=== PATIENT | female | born 1995 | race Caucasian/White ===

== ENCOUNTER → 2019-10-01 12:20 | Observation (INO) | END | disposition home or self-care (01) | LOC: 1NENULAB | PROVIDERS: ADMIT Advanced Practice Midwife; ATTEND Advanced Practice Midwife ==

== ENCOUNTER 2019-10-29 05:41 | Inpatient (IN) ==
[2019-10-29] MEDS ORDERED: CeFAZolin Syr 3,000MG/30 ML 3,000 MG/30 ML SYRINGE IVPB ONE (05:43)
[2019-10-29] MEDS ORDERED: Famotidine 20 MG/2 ML VIAL IVP ONE (05:43)
[2019-10-29] MEDS ORDERED: Metoclopramide 10 MG/2 ML VIAL IVP ONE (05:43)
[2019-10-29] MEDS ORDERED: Ringers Solution, Lactated 1,000 ML IVC ONE (05:43)
[2019-10-29 06:21] LABS: Basophils % 0.3 %; Eosinophils # 0.1 K/mcL (0.0-0.6); Eosinophils % 0.8 %; Hematocrit 36.9 % (35.3-44.9); Hemoglobin 13.1 g/dL (11.5-15.4); Immature Granulocytes % 0.8 % (0-4); Lymphocytes # 2.8 K/mcL (0.6-4.6); Lymphocytes % 21.5 %; Mean Corpuscular HGB Conc 35.5 g/dL (31.6-35.5); Mean Corpuscular Hemoglobin 29.8 pg (28.0-33.3); Mean Corpuscular Volume 84.1 fL (83.0-100.0); Mean Platelet Volume 10.1 fL (9.4-12.4); Monocytes % 7.5 %; Neutrophils # 9.1 K/mcL (1.6-8.9); Platelet Count 273 K/mcL (140-400); Red Blood Count 4.39 M/mcL (3.82-4.97); Segmented Neutrophils % 69.1 %; White Blood Count 13.2 K/mcL (4.3-11.1)
[2019-10-29] MEDS ORDERED: Ringers Solution, Lactated 1,000 ML ONE ×2 (07:12→07:18)
[2019-10-29] MEDS ORDERED: *HR* Morphine Sulfate/PF 10 MG/10 ML AMPUL ONE (07:16)
[2019-10-29] MEDS ORDERED: *HR* Midazolam HCl 2 MG/2 ML VIAL ONE (07:16)
[2019-10-29] MEDS ORDERED: EPHEDrine 50 MG/ML VIAL ONE (07:17)
[2019-10-29] MEDS ORDERED: *HR* FentaNYL (PF) 100 MCG/2 ML VIAL ONE ×3 (07:17→08:54)
[2019-10-29] MEDS ORDERED: Ibuprofen 400 MG TABLET PO PRN (07:25)
[2019-10-29] MEDS ORDERED: Ondansetron 4 MG/2 ML VIAL IVP PRN ×2 (07:25→12:02)
[2019-10-29] MEDS ORDERED: *HR* OxyCODONE/APAP 5/325 TABLET PO PRN (07:25)
[2019-10-29] MEDS ORDERED: Acetaminophen IV 1,000 MG/100 ML INFUS..BTL IVPB ONE (07:25)
[2019-10-29] MEDS ORDERED: Ondansetron 4 MG/2 ML VIAL ONE (07:38)
[2019-10-29] MEDS ORDERED: Dexamethasone 4 MG/ML VIAL ONE (07:38)
[2019-10-29] MEDS ORDERED: Ketorolac 30 MG/ML VIAL ONE (07:38)
[2019-10-29] MEDS ORDERED: *HR* Oxytocin 10 UNIT/ML VIAL IM ONE (07:40)
[2019-10-29] MEDS ORDERED: *HR* Phenylephrine 10 MG/ML VIAL ONE (08:52)
[2019-10-29] MEDS ORDERED: Oxytocin 20 units/ LR 1000 mL 20 UNIT/1,000 ML BAG IVC ONE (11:07)
[2019-10-29] MEDS ORDERED: Ringers Solution, Lactated 1,000 ML IVC SCH (12:02)
[2019-10-29] MEDS ORDERED: Rho Immune Globulin 1,500 UNIT SYRINGE IM ONE (12:02)
[2019-10-29] MEDS ORDERED: *HR* OxyCODONE/APAP 10/325 TABLET PO PRN (12:02)
[2019-10-29] MEDS ORDERED: Sennosides 8.6 MG TABLET PO PRN (12:02)
[2019-10-29] MEDS ORDERED: Oxytocin 20 units/ LR 1000 mL 20 UNIT/1,000 ML BAG IVC SCH (12:02)
[2019-10-29] MEDS ORDERED: Metoclopramide 10 MG/2 ML VIAL IVP PRN (12:02)
[2019-10-29] MEDS: Ibuprofen 600 MG TABLET PO PRN (15:57)
[2019-10-29] MEDS: cephALEXin 500 MG CAPSULE PO SCH ×2 (15:58→19:40)
[2019-10-29] MEDS: metroNIDAZOLE 500 MG TABLET PO SCH ×2 (15:58→19:40)
[2019-10-29] MEDS: *HR* OxyCODONE/APAP 5/325 TABLET PO PRN (21:21)
[2019-10-29] MEDS: Simethicone 80 MG TAB.CHEW PO PRN (21:53)
[2019-10-30] MEDS: *HR* OxyCODONE/APAP 5/325 TABLET PO PRN ×2 (05:29→14:02)
[2019-10-30 06:48] LABS: Basophils % 0.2 %; Eosinophils # 0.1 K/mcL (0.0-0.6); Eosinophils % 0.4 %; Hematocrit 38.3 % (35.3-44.9); Hemoglobin 13.1 g/dL (11.5-15.4); Immature Granulocytes % 0.7 % (0-4); Lymphocytes # 2.1 K/mcL (0.6-4.6); Lymphocytes % 13.1 %; Mean Corpuscular HGB Conc 34.2 g/dL (31.6-35.5); Mean Corpuscular Hemoglobin 29.2 pg (28.0-33.3); Mean Corpuscular Volume 85.5 fL (83.0-100.0); Mean Platelet Volume 10.2 fL (9.4-12.4); Monocytes # 1.4 K/mcL (0.0-1.3); Monocytes % 8.2 %; Neutrophils # 12.7 K/mcL (1.6-8.9); Platelet Count 256 K/mcL (140-400); Red Blood Count 4.48 M/mcL (3.82-4.97); Red Cell Distribution Width 13.9 % (11.5-14.5); Segmented Neutrophils % 77.4 %; White Blood Count 16.4 K/mcL (4.3-11.1)
[2019-10-30] MEDS ORDERED: NON-FORMULARY MEDICATION 1 EACH EACH (Pnv No.95/Ferrous Fum/Folic Ac [Prenatal Caplet] 1 T PO SCH (09:00)
[2019-10-30] MEDS: cephALEXin 500 MG CAPSULE PO SCH ×3 (09:14→20:18)
[2019-10-30] MEDS: metroNIDAZOLE 500 MG TABLET PO SCH ×3 (09:15→20:18)
[2019-10-30] MEDS: Prenatal Vit/FA 1 EACH TABLET PO SCH (09:15)
[2019-10-30] MEDS: Simethicone 80 MG TAB.CHEW PO PRN (09:28)
[2019-10-30] MEDS: Ibuprofen 600 MG TABLET PO PRN ×2 (09:28→20:18)
[2019-10-31 07:51] VITALS: BP 99/57
[2019-10-31] MEDS: Ibuprofen 600 MG TABLET PO PRN (08:10)
[2019-10-31] MEDS: Prenatal Vit/FA 1 EACH TABLET PO SCH (08:11)
[2019-10-31] MEDS: cephALEXin 500 MG CAPSULE PO SCH (08:11)
[2019-10-31] MEDS: metroNIDAZOLE 500 MG TABLET PO SCH (08:11)
[2019-10-31] MEDS: *HR* OxyCODONE/APAP 5/325 TABLET PO PRN ×2 (09:06)
== END 2019-10-31 12:07 | disposition home or self-care (01) | DRG 540 ==
LOC: 1NENULAB 05:41 → 1NENUOBS 11:48
PROVIDERS: ADMIT Obstetrics & Gynecology; ATTEND Obstetrics & Gynecology

== ENCOUNTER → 2021-05-19 17:40 | Observation (INO) | END | disposition home or self-care (01) | LOC: 1NENULAB | PROVIDERS: ADMIT Obstetrics & Gynecology; ATTEND Obstetrics & Gynecology ==

== ENCOUNTER 2021-06-05 05:37 | Inpatient (IN) ==
[2021-06-05] MEDS ORDERED: *HR* HYDROmorphone PF 0.5 MG/0.5 ML SYRINGE IVP PRN (06:06)
[2021-06-05] MEDS ORDERED: Promethazine 6.25 MG in Water for inj. (sterile) 20 ML IVPB PRN (06:06)
[2021-06-05] MEDS ORDERED: *HR* Labetalol 20 MG/4 ML SYRINGE IVP PRN (06:06)
[2021-06-05] MEDS ORDERED: *HR* Midazolam HCl 2 MG/2 ML VIAL ONE (06:39)
[2021-06-05] MEDS ORDERED: Ondansetron 4 MG/2 ML VIAL ONE (06:39)
[2021-06-05] MEDS ORDERED: Ketorolac 30 MG/ML VIAL ONE (06:39)
[2021-06-05] MEDS ORDERED: Ringers Solution, Lactated 1,000 ML ONE (06:40)
[2021-06-05] MEDS ORDERED: EPHEDrine 50 MG/ML VIAL ONE (06:40)
[2021-06-05] MEDS ORDERED: *HR* FentaNYL (PF) 100 MCG/2 ML VIAL ONE (06:41)
[2021-06-05] MEDS ORDERED: Famotidine 20 MG/2 ML VIAL IVP PRN (06:42)
[2021-06-05] MEDS ORDERED: *HR* Morphine Sulfate/PF 10 MG/10 ML AMPUL ONE (06:42)
[2021-06-05] MEDS ORDERED: Naloxone 0.4 MG/ML INJ IVP PRN (06:42)
[2021-06-05] MEDS ORDERED: Metoclopramide 10 MG/2 ML VIAL IVP PRN ×2 (06:42→12:31)
[2021-06-05] MEDS ORDERED: Ringers Solution, Lactated 1,000 ML IVC SCH ×2 (06:45→12:31)
[2021-06-05 07:10] LABS: Basophils % 0.2 %; Eosinophils # 0.1 K/mcL (0.0-0.6); Hematocrit 35.3 % (35.3-44.9); Hemoglobin 11.9 g/dL (11.5-15.4); Immature Granulocytes % 1.1 % (0-4); Lymphocytes % 18.7 %; Mean Corpuscular HGB Conc 33.7 g/dL (31.6-35.5); Mean Corpuscular Hemoglobin 28.9 pg (28.0-33.3); Mean Corpuscular Volume 85.7 fL (83.0-100.0); Mean Platelet Volume 10.8 fL (9.4-12.4); Monocytes # 1.1 K/mcL (0.0-1.3); Monocytes % 10.3 %; Neutrophils # 7.4 K/mcL (1.6-8.9); Platelet Count 230 K/mcL (140-400); Red Blood Count 4.12 M/mcL (3.82-4.97); Red Cell Distribution Width 14.1 % (11.5-14.5); Segmented Neutrophils % 68.7 %; White Blood Count 10.8 K/mcL (4.3-11.1)
[2021-06-05] MEDS ORDERED: Ketamine *HR* 500 MG/10 ML MDV ONE (08:43)
[2021-06-05] MEDS ORDERED: *HR* Propofol 200 MG/20 ML VIAL IVP ONE (09:03)
[2021-06-05] MEDS ORDERED: Acetaminophen IV 1,000 MG/100 ML BAG IVPB ONE (09:29)
[2021-06-05 10:17] LABS: Amphetamine Screen,Urine Negative ng/mL (Cutoff=1000); Barbiturate Screen,Urine Negative ng/mL (Cutoff=200); Benzodiazepines Screen,Urine Negative ng/mL (Cutoff=200); Cannabinoid Screen,Urine Negative ng/mL (Cutoff = 50); Cocaine Screen,Urine Negative ng/mL (Cutoff= 300); Opiate Screen,Urine Negative ng/mL (Cutoff=300); Phencyclidine Screen,Urine Negative ng/mL (Cutoff=25)
[2021-06-05] MEDS ORDERED: Albuterol 2.5 MG/3 ML NEBULIZER IH SCH ×2 (11:08→16:00)
[2021-06-05] MEDS ORDERED: Oxytocin 20 units/ LR 1000 mL 20 UNIT/1,000 ML BAG IVC SCH (12:31)
[2021-06-05] MEDS ORDERED: Ondansetron 4 MG/2 ML VIAL IVP PRN (12:31)
[2021-06-05] MEDS ORDERED: Rho Immune Globulin 1,500 UNIT SYRINGE IM ONE (12:31)
[2021-06-05] MEDS ORDERED: *HR* OxyCODONE/APAP 10/325 TABLET PO PRN (12:31)
[2021-06-05] MEDS ORDERED: Simethicone 80 MG TAB.CHEW PO PRN (12:31)
[2021-06-05] MEDS: Ibuprofen 600 MG TABLET PO SCH ×2 (12:51→18:19)
[2021-06-05] MEDS: metroNIDAZOLE 500 MG TABLET PO SCH ×2 (15:12→21:03)
[2021-06-05] MEDS: cephALEXin 500 MG CAPSULE PO SCH ×2 (15:13→21:03)
[2021-06-05] MEDS: *HR* Enoxaparin 40 MG/0.4 ML SYRINGE SQ SCH (21:03)
[2021-06-05] MEDS: *HR* OxyCODONE Immed Rel 5 MG TABLET PO PRN (21:05)
[2021-06-06] MEDS: Ibuprofen 600 MG TABLET PO SCH ×4 (00:26→20:02)
[2021-06-06] MEDS: *HR* OxyCODONE Immed Rel 5 MG TABLET PO PRN ×4 (04:18→20:03)
[2021-06-06] MEDS: metroNIDAZOLE 500 MG TABLET PO SCH ×3 (09:30→20:02)
[2021-06-06] MEDS: cephALEXin 500 MG CAPSULE PO SCH ×3 (09:30→20:02)
[2021-06-06] MEDS: Prenatal Vit/FA 1 EACH TABLET PO SCH (09:31)
[2021-06-06 09:41] LABS: Basophils % 0.1 %; Eosinophils % 0.2 %; Hematocrit 33.2 % (35.3-44.9); Hemoglobin 11.2 g/dL (11.5-15.4); Immature Granulocytes % 0.8 % (0-4); Lymphocytes # 1.8 K/mcL (0.6-4.6); Lymphocytes % 13.1 %; Mean Corpuscular HGB Conc 33.7 g/dL (31.6-35.5); Mean Corpuscular Hemoglobin 29.4 pg (28.0-33.3); Mean Corpuscular Volume 87.1 fL (83.0-100.0); Mean Platelet Volume 10.7 fL (9.4-12.4); Monocytes # 1.4 K/mcL (0.0-1.3); Monocytes % 9.7 %; Neutrophils # 10.7 K/mcL (1.6-8.9); Platelet Count 206 K/mcL (140-400); Red Blood Count 3.81 M/mcL (3.82-4.97); Red Cell Distribution Width 14.3 % (11.5-14.5); Segmented Neutrophils % 76.1 %
[2021-06-06 15:33] VITALS: O2SAT 96
[2021-06-06] MEDS: *HR* Enoxaparin 40 MG/0.4 ML SYRINGE SQ SCH (20:03)
[2021-06-06 21:11] VITALS: BP 117/72; PULSE 74; TEMP 98.4
[2021-06-07] MEDS: *HR* OxyCODONE Immed Rel 5 MG TABLET PO PRN ×3 (00:03→12:26)
[2021-06-07] MEDS: Ibuprofen 600 MG TABLET PO SCH ×2 (02:38→09:07)
[2021-06-07] MEDS: Prenatal Vit/FA 1 EACH TABLET PO SCH (09:07)
[2021-06-07] MEDS: metroNIDAZOLE 500 MG TABLET PO SCH (09:07)
[2021-06-07] MEDS: cephALEXin 500 MG CAPSULE PO SCH (09:07)
== END 2021-06-07 13:33 | disposition home or self-care (01) | DRG 539 ==
LOC: 1NENULAB 05:37 → EDSTATUS 07:30 → 1NENUOBS 11:56
PROVIDERS: ADMIT Obstetrics & Gynecology; ATTEND Obstetrics & Gynecology